=== PATIENT | female | born 2000 | race Hispanic/Latino ===

== ENCOUNTER 2024-03-09 20:50 | Emergency (ER) | payer BC ==
[~2024-03-09] VITALS: Ht 154.9 cm; Wt 93.0 kg
[2024-03-09 21:30] VITALS: PULSE 87; RESP 18; TEMP 98.8; O2SAT 100
[2024-03-09 23:25] LABS: HIV 1&2 AB SCREEN NON-REACTIVE (NONREACTIVE); HIV- 1 P24 AG SCREEN NON-REACTIVE (NONREACTIVE)
[2024-03-12 07:27] LABS: HEPATITIS B SURFACE AG (P) Negative (Negative)
== END 2024-03-09 22:14 | disposition home or self-care (01) ==
LOC: ER 21:48
DX: S69.91XA Unspecified injury of right wrist, hand and finger(s), initial encounter (principal); W46.0XXA Contact with hypodermic needle, initial encounter
CPT/HCPCS: 36415; 87340; 87390; 99283; G0433; G0435